=== PATIENT | male | born 1985 | race Caucasian/White ===

== ENCOUNTER 2018-01-04 21:43 | Emergency (ER) | payer OTHER ==
[2018-01-05] MEDS: IPRATROPIUM (NEB) 0.5 MG/2.5 ML AMP NEB (00:40)
[2018-01-05] MEDS: ALBUTEROL 0.083% (NEB) 2.5 MG/3 ML AMP NEB (00:40)
[2018-01-05] MEDS: METHYLPREDNISOLONE 125 MG INJ IM (00:47)
[2018-01-05] MEDS: KETOROLAC 30 MG INJ IM (01:42)
[2018-01-05] MEDS: HYDROCODONE/APAP (5/325) TAB PO (02:42)
== END 2018-01-05 03:10 | disposition home or self-care (01) ==
LOC: FTE 21:43
DX: J20.9 Acute bronchitis, unspecified (principal); F17.210 Nicotine dependence, cigarettes, uncomplicated; R07.9 Chest pain, unspecified
CPT/HCPCS: 71045; 93005; 94664; 96372; 99284-25

== ENCOUNTER 2018-03-11 17:16 | Emergency (ER) | payer OTHER ==
[2018-03-11] MEDS: DEXAMETHASONE 10 MG/ML 1 ML INJ IM (19:13)
[2018-03-11] MEDS: ALBUTEROL 0.083% (NEB) 2.5 MG/3 ML AMP HHN (19:36)
[2018-03-11] MEDS: IPRATROPIUM (NEB) 0.5 MG/2.5 ML AMP HHN (19:36)
== END 2018-03-11 20:35 | disposition home or self-care (01) ==
LOC: FTE 17:16
DX: J40 Bronchitis, not specified as acute or chronic (principal); Z87.891 Personal history of nicotine dependence
CPT/HCPCS: 71045; 94644; 96372; 99284-25